=== PATIENT | female | born 1955 | race African-American/Black ===

== ENCOUNTER 2021-06-17 12:35 | Emergency (ER) | payer OTHER ==
[~2021-06-17] VITALS: Ht 175.3 cm; Wt 73.0 kg
[2021-06-17 12:42] VITALS: BP 126/56
[2021-06-17] MEDS ORDERED: LEVO100T9 PO (13:03)
[2021-06-17] MEDS ORDERED: SIMV10TA97 PO (13:03)
[2021-06-17] MEDS ORDERED: METF-873 PO (13:03)
[2021-06-17] MEDS ORDERED: ASPI-1406 PO (13:03)
== END 2021-06-17 14:08 | disposition home or self-care (01) ==
LOC: ER 12:35
DX: E11.9 Type 2 diabetes mellitus without complications (principal); Z76.0 Encounter for issue of repeat prescription; E78.00 Pure hypercholesterolemia, unspecified; E03.9 Hypothyroidism, unspecified; I10 Essential (primary) hypertension; Z90.710 Acquired absence of both cervix and uterus; Z79.82 Long term (current) use of aspirin; Z79.84 Long term (current) use of oral hypoglycemic drugs; Z88.8 Allergy status to other drugs, medicaments and biological substances
CPT/HCPCS: 99283

== ENCOUNTER 2021-07-31 13:53 | Emergency (ER) | payer MEDICARE, OTHER ==
[~2021-07-31] VITALS: Ht 165.1 cm; Wt 77.0 kg
[~2021-07-31 13:53] MED LIST: ASPI-1406 PO; LEVO100T9 PO; METF-873 PO; SIMV10TA97 PO
[2021-07-31] MEDS ORDERED: HYDROCODONE/ACETAMINOPHEN 5/325MG TABLET PO ONE (14:45)
[2021-07-31] MEDS ORDERED: DEXAMETHASONE 10 MG/ML VIAL IV ONE (16:00)
[2021-07-31 16:56] LABS: BASOPHILS % 0.3 % (0.0-2.0); EOSINOPHILS % 1.5 % (0.0-5.0); HEMATOCRIT. 36.2 % (36.0-48.0); HEMOGLOBIN. 12.4 g/dL (12.0-16.0); LYMPHOCYTES % 26.5 % (20.0-50.0); MEAN CORPUSCULAR HEMOGLOBIN 30.9 pg (28.0-32.0); MEAN CORPUSCULAR VOLUME 90.1 fL (81.0-99.0); MEAN PLATELET VOLUME 7.3 fl (7.4-10.4); MONOCYTES % 10.6 % (2.0-8.0); NEUTROPHILS % 61.1 % (40.0-76.0); PLATELET 342 x1000/uL (130-400); RED BLOOD CELL COUNT 4.02 mill/uL (4.2-5.4); RED CELL DISTRIBUTION WIDTH 15.4 % (11.6-14.6)
[2021-07-31 17:02] LABS: CHLORIDE 106 mEq/L (98-107)
[2021-07-31 19:16] VITALS: BP 123/76
== END 2021-07-31 19:49 | disposition left against medical advice (07) ==
LOC: ER 14:07
DX: R53.1 Weakness (principal); Z20.822 Contact with and (suspected) exposure to COVID-19; M50.821 Other cervical disc disorders at C4-C5 level; M50.23 Other cervical disc displacement, cervicothoracic region; M47.812 Spondylosis without myelopathy or radiculopathy, cervical region; M48.02 Spinal stenosis, cervical region; I12.0 Hypertensive chronic kidney disease with stage 5 chronic kidney disease or end stage renal disease; E11.22 Type 2 diabetes mellitus with diabetic chronic kidney disease; N18.6 End stage renal disease; Z99.2 Dependence on renal dialysis; Z79.84 Long term (current) use of oral hypoglycemic drugs; Z79.82 Long term (current) use of aspirin; Z79.899 Other long term (current) drug therapy
CPT/HCPCS: 36415; 70551; 72125; 72141; 80053; 85025; 86850; 86900; 86901; 87426; 96374; 99284; J1100

== ENCOUNTER 2021-08-28 13:21 | Emergency (ER) | payer MEDICARE ==
[~2021-08-28] VITALS: Ht 165.1 cm; Wt 75.0 kg
[2021-08-28 13:28] VITALS: BP 119/72
== END 2021-08-28 16:16 | disposition left against medical advice (07) ==
LOC: ER 13:21
DX: Z53.21 Procedure and treatment not carried out due to patient leaving prior to being seen by health care provider (principal)
CPT/HCPCS: 99281

== ENCOUNTER 2021-08-30 16:32 | Emergency (ER) | payer MEDICARE ==
[~2021-08-30] VITALS: Ht 165.1 cm; Wt 73.0 kg
[2021-08-30] MEDS ORDERED: LEVO100T9 MT (20:55)
[2021-08-30] MEDS ORDERED: METF-414 MT (20:55)
[2021-08-30] MEDS ORDERED: ASPI-1497 MT (20:55)
[2021-08-30] MEDS ORDERED: ALBU6.7H9 INH (20:55)
[2021-08-30] MEDS ORDERED: SIMV10TA97 MT (20:55)
[2021-08-30 21:23] VITALS: BP 126/82
== END 2021-08-30 21:25 | disposition home or self-care (01) ==
LOC: ER 16:32
DX: Z76.0 Encounter for issue of repeat prescription (principal); E78.00 Pure hypercholesterolemia, unspecified; J45.909 Unspecified asthma, uncomplicated; I10 Essential (primary) hypertension; M19.90 Unspecified osteoarthritis, unspecified site; E11.9 Type 2 diabetes mellitus without complications; Z90.710 Acquired absence of both cervix and uterus; Z79.84 Long term (current) use of oral hypoglycemic drugs; Z79.82 Long term (current) use of aspirin; Z88.8 Allergy status to other drugs, medicaments and biological substances
CPT/HCPCS: 99283